=== PATIENT | male | born 1955 | race Caucasian/White ===

== ENCOUNTER 2019-01-19 17:46 | Observation (INO) ==
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
[2019-01-19] MEDS ORDERED: *HR* HYDROcodone/Acet 5/325 mg TABLET PO ONE (19:06)
[2019-01-19] MEDS ORDERED: *HR* HYDROcodone/Acet 5/325 mg TABLET PO PRN (21:41)
[2019-01-19] MEDS ORDERED: Ondansetron ODT 4 MG TAB.RAPDIS SL PRN (21:41)
[2019-01-19] MEDS ORDERED: Ibuprofen 400 MG TABLET PO PRN (21:41)
[2019-01-19] MEDS ORDERED: Naloxone 0.4 MG/ML INJ IVP PRN (21:41)
[2019-01-19] MEDS: *HR* OxyCODONE Immed Rel 5 MG TABLET PO PRN (22:28)
[2019-01-20] MEDS: *HR* OxyCODONE Immed Rel 5 MG TABLET PO PRN (08:11)
[2019-01-20] MEDS ORDERED: Multivit/Ca/Min/Fe/FA 1 TAB TABLET PO SCH (09:00)
[2019-01-20] MEDS ORDERED: Lisinopril 20 MG TABLET PO SCH (09:00)
[2019-01-20] MEDS ORDERED: Thiamine (B-1) 100 MG TABLET PO SCH (09:00)
[2019-01-20] MEDS ORDERED: Folic Acid 1 MG TABLET PO SCH (09:00)
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
[2019-01-20 10:13] LABS: Basophils % 0.1 %; Eosinophils % 0.3 %; Hematocrit 34.4 % (37.5-50.1); Hemoglobin 11.9 g/dL (12.9-16.9); Immature Granulocytes % 0.3 % (0-4); Lymphocytes # 1.4 K/mcL (0.6-4.6); Lymphocytes % 14.3 %; Mean Corpuscular HGB Conc 34.6 g/dL (31.6-35.5); Mean Corpuscular Hemoglobin 31.6 pg (28.0-33.3); Mean Corpuscular Volume 91.2 fL (83.0-100.0); Mean Platelet Volume 8.8 fL (9.4-12.4); Monocytes # 1.5 K/mcL (0.0-1.3); Monocytes % 15.2 %; Neutrophils # 6.9 K/mcL (1.6-8.9); Platelet Count 313 K/mcL (140-400); Red Blood Count 3.77 M/mcL (4.19-5.50); Red Cell Distribution Width 13.7 % (11.5-14.5); Segmented Neutrophils % 69.8 %; White Blood Count 9.9 K/mcL (4.3-11.1)
[2019-01-20 10:34] LABS: Alanine Aminotransferase 8 Units/L (7-52); Albumin 3.6 g/dL (3.5-5.7); Albumin/Globulin Ratio 1.5 (1.1-2.2); Alkaline Phosphatase 101 Units/L (34-104); Aspartate Amino Transferase 13 Units/L (13-39); BUN/Creatinine Ratio 16 (6-26); Bilirubin,Total 0.6 mg/dL (0.3-1.0); Blood Urea Nitrogen 13 mg/dL (8-23); Calcium 8.5 mg/dL (8.6-10.3); Carbon Dioxide 26 mEq/L (23-29); Chloride 100 mEq/L (98-107); Globulin 2.4 g/dL (2.4-3.5); Glucose 118 mg/dL (70-105); Osmolality,Calculated 273 (280-300); Potassium 4.1 mEq/L (3.5-5.1); Sodium 131 mEq/L (136-145); eGFR For African Americans > 60 (> 60); eGFR For Non-African Americans > 60 (> 60)
[2019-01-20 10:38] VITALS: BP 97/65
--- NOTE | 2019-01-20 12:30 | Physician Discharge Referral ---
ExtendedCare Referral Info Transfer To: [facility] Provider in Charge after Transfer: Other (malvin estevez) Institutional Level of Care: Skilled - Diagnosis (1) Fracture of surgical neck of right humerus Priority: Primary Status: Acute (2) Hypertension Priority: Secondary Status: Acute (3) Alcoholism Priority: Secondary Status: Acute (4) Seizure disorder Priority: Secondary Status: Acute (5) Tobacco abuse Status: Chronic - Transfer Medications Prescriptions: HYDROcodone/Acet 5/325 mg [[place] 5-325 mg] 1 tab PO Q6H PRN 7 Days #30 tablet PRN Reason: Moderate Pain Home Medications: Folic Acid 1 mg PO DAILY 01/19/19 [History] Lisinopril [Zestril] 20 mg PO DAILY 01/19/19 [History] Metoprolol Tartrate [Lopressor] 50 mg PO BID 01/19/19 [History] Multivit-Min/Iron Fum/Folic AC [Cxovj-Nirfwad-Gvshfbxs Tablet] 1 tab PO DAILY 01/19/19 [History] HYDROcodone/Acet 5/325 mg [[place] 5-325 mg] 1 tab PO Q6H PRN 7 Days #30 tablet 01/20/19 [Rx] Allergies/Adverse Reactions: Allergy/AdvReac Type Severity Reaction Status Date / Time No Known Allergies Allergy Verified 01/19/19 18:02 - Respiratory Orders None Smoking Cessation: Smoking cessation has been advised. For more information, call the [place] Tobacco Quit Line at 1-096-NQOHNOW. - Advance Directives Code Status: Full Code - Mobility Orders Ambulate - Rehabiliation Orders Rehab Potential: Fair Rehab Orders: Evaluation for Physical Therapy, Evaluation for Occupational Therapy - Diet Orders Mechanical Soft CERTIFICATION: I certify that the transfer of the above named patient to an Extended Care Facility is necessary for the continuing treatment of the diagnosis listed. The above information is true and accurate reflection of patient's current condition. Confidential - Redisclosure prohibited without a patient's written consent.
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
== END 2019-01-20 15:27 | disposition home or self-care (01) ==
LOC: INPGRE 17:46 → EMEROOGRE 17:46 → INPGRE 21:10